=== PATIENT | male | born 1985 | race Hispanic/Latino ===

== ENCOUNTER 2018-04-20 16:31 | Emergency (ER) | payer OTHER ==
[~2018-04-20] VITALS: Ht 165.1 cm; Wt 93.0 kg
[2018-04-20] MEDS ORDERED: ASPIRIN 81 MG CHEW TAB PO STA (16:59)
[2018-04-20 18:30] VITALS: BP 120/69
--- NOTE | 2018-04-20 18:35 | Diagnostic Imaging Report ---
EXAMINATION: CXR 2 VIEW - HOPD INDICATION: Chest pain. COMPARISON: None FINDINGS: TUBES and LINES: None. LUNGS: Lungs are well inflated. Lungs are clear. There is no evidence of pneumonia or pulmonary edema. PLEURA: No pleural effusion or pneumothorax. HEART AND MEDIASTINUM: The cardiomediastinal silhouette is unremarkable. BONES AND SOFT TISSUES: No acute osseous lesion. Soft tissues are unremarkable. UPPER ABDOMEN: No free air under the diaphragm. IMPRESSION: No acute thoracic abnormality. Signed by: Dr. Brian Williamson M.D. on 04/20/2018 5:19 PM
== END 2018-04-20 18:37 | disposition home or self-care (01) ==
LOC: FSED 16:31
DX: R07.89 Other chest pain (principal); R06.00 Dyspnea, unspecified
CPT/HCPCS: 71046; 80048; 80076; 80307; 81003; 82553; 84484; 85025; 85379; 93005; 99284